=== PATIENT | female | born 1995 | race Caucasian/White ===

== ENCOUNTER 2023-03-13 00:13 | Emergency (ER) | payer MEDICAID ==
[~2023-03-13] VITALS: Ht 167.6 cm; Wt 56.1 kg
[2023-03-13 00:30] VITALS: BP 102/55; TEMP 98.5
[2023-03-13] MEDS ORDERED: IPRATROPIUM/ALBUTEROL 0.5-3(2.5)MG/3ML NEB HHN ONE (00:45)
[2023-03-13] MEDS ORDERED: DEXAMETHASONE 10 MG/ML VIAL PO ONE (00:45)
[2023-03-13 01:46] VITALS: PULSE 65; RESP 18; O2SAT 97
== END 2023-03-13 02:31 | disposition home or self-care (01) ==
LOC: ER 00:13
DX: J45.909 Unspecified asthma, uncomplicated (principal)
CPT/HCPCS: 94640; 99283; J1100; Z7610 ×2